=== PATIENT | male | born 1950 | race Caucasian/White ===

== ENCOUNTER 2018-06-27 14:52 | Observation (INO) | payer MEDICARE ==
--- NOTE | 2018-06-27 15:23 | ED Physician Documentation ---
History of Present Illness - Stated complaint Stated Complaint: CP/WEAKNESS - Chief complaint Chief Complaint: Cardiac - Additonal information Additional information: hx from pt years of int fleeting sharp l chest pains increased freq and severity this week but still fleeting worse with laying down not related to exertion has had cardiac wup with [place] including stress test no fever cough no travel no leg swelling also felt very weak and faint today Review of Systems Constitutional: denies: Fever, Chills Cardiac: reports: Chest pain / pressure. denies: Palpitations Respiratory: denies: Dyspnea, Cough GI: denies: Abdominal Pain, Nausea, Vomiting Neurologic: reports: Generalized weakness Psychiatric: denies: Depressed Endocrine: denies: Polydypsia PD PAST MEDICAL HISTORY - Present Medications Home Medications: Ambulatory Orders Medication Instructions Recorded Confirmed Apixaban [Eliquis] 06/27/18 06/27/18 Furosemide [Lasix] 40 mg 06/27/18 RX: Allopurinol 300 mg 06/27/18 RX: Atenolol 25 mg 06/27/18 RX: Lisinopril 20 mg 06/27/18 RX: Potassium Chloride 10 meq PO 06/27/18 - Allergies Allergies/Adverse Reactions: Allergies Allergy/AdvReac Type Severity Reaction Status Date / Time No Known Drug Allergies Allergy Verified 06/27/18 15:10 PD ED PE NORMAL - Vitals Vital signs reviewed: Yes - General General: Alert and oriented X 3 - Neck Neck: Supple, no meningeal sign - Cardiac Cardiac: RRR, No murmur - Respiratory Respiratory: Clear bilaterally - Abdomen Abdomen: Non tender - Derm Derm: Normal color - Extremities Extremities: No deformity, No edema, No calf tenderness / cord - Neuro Neuro: Alert and oriented X 3 Results - Vitals Vitals: Vital Signs - 24 hr 06/27/18 06/27/18 15:04 16:13 Temperature 37.2 C Heart Rate 60 66 Respiratory 17 14 Rate Blood Pressure 155/93 H 129/85 H O2 Saturation 98 96 Oxygen O2 Source Room air - EKG (time done) 1500 Rate: Rate (enter#) (39) Rhythm: Atrial fibrillation Ischemia: Non specific changes (flat T inf and lateral) - Labs Labs: Laboratory Tests 06/27/18 06/27/18 06/27/18 15:02 15:02 15:28 WBC 6.6 RBC 4.85 Hgb 16.1 Hct 46.6 MCV 96.1 H MCH 33.2 H MCHC 34.6 RDW 13.7 Plt Count 136 MPV 9.7 Neut # (Auto) 3.2 Lymph # (Auto) 2.0 [place] # (Auto) 1.0 Eos # (Auto) 0.2 Baso # (Auto) 0.1 Absolute Nucleated RBC 0.01 Nucleated RBC % 0.1 Sodium Potassium Chloride Carbon Dioxide Anion Gap BUN Creatinine Estimated GFR (MDRD) Glucose Calcium Magnesium 2.2 Total Bilirubin 1.4 H Direct Bilirubin 0.2 AST 30 ALT 34 Alkaline Phosphatase 39 L Troponin I Total Protein 6.9 Albumin 4.2 Globulin 2.7 06/27/18 06/27/18 15:28 15:28 WBC RBC Hgb Hct MCV MCH MCHC RDW Plt Count MPV Neut # (Auto) Lymph # (Auto) [place] # (Auto) Eos # (Auto) Baso # (Auto) Absolute Nucleated RBC Nucleated RBC % Sodium 135 Potassium 4.1 Chloride 99 L Carbon Dioxide 26 Anion Gap 10.0 BUN 14 Creatinine 0.8 Estimated GFR (MDRD) 96 Glucose 106 H Calcium 9.1 Magnesium Total Bilirubin Direct Bilirubin AST ALT Alkaline Phosphatase Troponin I < 0.04 Total Protein Albumin Globulin - Rads (name of study) CXR Radiology: See rad report (5 mm nodule RLL) PD MEDICAL DECISION MAKING - ED course ED course: chest pain sounds unlikely to be ACS but more concerned about sig bradycardia and feeling weak and faint he is on a BB d/w pt and and agree prudent to obs to hold BB and make sure HR improves (ie doesn't need a PPM) also hopefully get an echo to further eval the CP d/w hospitalist at 1635 Departure - Departure Disposition: ED Place in Observation Clinical Impression: Bradycardia Chest pain Qualifiers: Chest pain type: unspecified Qualified Code(s): R07.9 - Chest pain, unspecified Discharge Date/Time: 06/27/18 17:27
[2018-06-27 15:33] LABS: BASOPHILS # (AUTO) 0.1 10^3/uL (0.0-0.1); BASOPHILS % (AUTO) 0.9 %; EOSINOPHILS # (AUTO) 0.2 10^3/uL (0.0-0.7); EOSINOPHILS % (AUTO) 2.7 %; HGB - HEMOGLOBIN 16.1 g/dL (14.0-18.0); LYMPHOCYTES % (AUTO) 31.2 %; MEAN CORPUSCULAR HEMOGLOBIN 33.2 pg (27.0-31.0); MEAN CORPUSCULAR HGB CONC 34.6 g/dL (32.0-36.0); MEAN CORPUSCULAR VOLUME 96.1 fL (80.0-94.0); MEAN PLATELET VOLUME 9.7 fL (7.4-11.4); NEUTROPHILS # (AUTO) 3.2 10^3/uL (1.5-6.6); NEUTROPHILS % (AUTO) 49.2 %; PLT - PLATELET COUNT 136 10^3/uL (130-450); RED BLOOD COUNT 4.85 10^6/uL (4.70-6.10); RED CELL DISTRIBUTION WIDTH 13.7 % (12.0-15.0); WHITE BLOOD COUNT 6.6 x10^3/uL (4.8-10.8)
[2018-06-27 15:43] LABS: CALCIUM 9.1 mg/dL (8.5-10.3); CREATININE 0.8 mg/dL (0.6-1.2)
--- NOTE | 2018-06-27 15:52 | XRAY Report ---
Reason: chest pain Procedure Date: 06/27/2018 Accession Number: [id number] / [id number] Procedure: XR - Chest 1 View X-Ray CPT Code: 00649 FULL RESULT: EXAM: CHEST RADIOGRAPHY EXAM DATE: 06/27/2018 03:13 PM. CLINICAL HISTORY: Chest pain. COMPARISON: None available. TECHNIQUE: 1 view. FINDINGS: Lungs/Pleura: No acute infiltrate or consolidation. No pneumothorax or large pleural effusion. There is a 5 mm nodular opacity in the lateral lower right lung which might be calcified. Mediastinum: Within exam limitations, the cardiomediastinal contour is normal. There is atherosclerotic calcification in the aortic arch. Other: There are degenerative endplate changes in the spine. IMPRESSION: 1. No acute infiltrate or consolidation. 2. Possibly calcified subcentimeter nodule in the lateral lower right lung. If there are no prior exams for comparison, this could be further characterized with chest CT on a nonemergent basis. RADIA
[2018-06-27] MEDS ORDERED: SODIUM CHLORIDE FLUSH 0.9% 10 ML SYRINGE IVP PRN (16:47)
[2018-06-27] MEDS ORDERED: ACETAMINOPHEN 325 MG TABLET PO PRN (16:47)
[2018-06-27 17:19] LABS: ALBUMIN 4.2 g/dL (3.2-5.5); BILIRUBIN,DIRECT 0.2 mg/dL (0.1-0.5); BILIRUBIN,TOTAL 1.4 mg/dL (0.2-1.0); TOTAL PROTEIN 6.9 g/dL (6.7-8.2)
[2018-06-27] MEDS: SODIUM CHLORIDE FLUSH 0.9% 10 ML SYRINGE IVP SCH (17:55)
--- NOTE | 2018-06-27 20:20 | HISTORY & PHYSICAL EXAMINATION ---
DATE OF SERVICE: 06/27/2018 Physician: Sia Almendarez MD HISTORY OF PRESENT ILLNESS: This is a 67-year-old white male who just moved to [place] 2 months ago from [place] for half-way. He has a history of chronic AFib and is on Atenolol and Eliquis. He has a history of hypertension and gout. He has been complaining of brief, stabbing chest pains in the left chest without any radiation or associated symptoms, for about 5 years, which have gotten worse over the past 1 year, and especially in this last week. He gets them every day, multiple times a day. They are worse in a supine position. He has not had any testing for this because of the move, and he has no PCP locally yet. He has not seen his assurance senior manager in 5 years, even in the [place] area. He gets occasional dizziness, not associated with his chest symptoms, which have increased over the past several weeks. Today, while doing routine activities around the house, he developed severe weakness, and near syncope, needed to sit down and presented to the emergency room. In the emergency room, he was found to have atrial fibrillation with a heart rate of 30 and he is being placed in Observation for management of his bradycardia, which is probably the reason for this near syncope. He also described the chest pain pattern to the emergency room doctor, and he will be evaluated for this. PAST MEDICAL HISTORY 1. Hypertension, on Lisinopril, Lasix and potassium 2. Gout, on allopurinol. 3. Permanent atrial fibrillation, on atenolol 12.5 daily and Eliquis 5 b.i.d. ALLERGIES: None. MEDICATIONS 1. Lisinopril, unknown dose daily in the morning. 2. Lasix, unknown dose in the morning. 3. Potassium. 4. Atenolol 12.5 mg at bedtime. 5. Eliquis 5 mg b.i.d. 6. Allopurinol 100 mg at bedtime. REVIEW OF SYSTEMS: Comprehensive review of systems was performed and the pertinent positives are in the HPI, the rest are negative. FAMILY HISTORY: Noncontributory. SOCIAL HISTORY: He is a nonsmoker, quit in . He drinks social alcohol, usually about once or twice a week, and uses no illicit drugs. He lives with his new of 1-1/2 years, and he is retired from a business position. PHYSICAL EXAMINATION GENERAL: White male, in no distress. VITAL SIGNS: Blood pressure 120-140/70, heart rate is in the 60s in atrial fibrillation. Afebrile. Room air saturation 97%. HEENT: Unremarkable. NECK: Without JVD or carotid bruits. LUNGS: Clear. HEART: Heart sounds are bradycardic with a 1-2/6 systolic murmur heard at the lower left sternal border. There is no RV heave. No gallop. ABDOMEN: Soft, obese. Positive bowel sounds, nontender. No organomegaly. EXTREMITIES: Trace pedal edema. No clubbing or cyanosis. NEUROLOGIC: Intact. LABORATORIES: Normal electrolytes. Normal BUN and creatinine. Bilirubin 1.4, normal AST and ALT. Troponin undetectable. CBC unremarkable, except MCV 96. No urinalysis was done. No INR was done. DIAGNOSTIC STUDIES: EKG: atrial fibrillation with a rate of 30, otherwise unremarkable. Chest x-ray: no active pulmonary disease. IMPRESSION/DIAGNOSES 1. Near syncope. 2. Bradycardia, which is likely from the atenolol use, but possibly underlying sick sinus syndrome. 3. Chronic atrial fibrillation, on proper Eliquis dosing. 4. History of hypertension. 5. History of gout. 6. Atypical chest pain for angina; the features are a little more as seen with pericarditis since they are worsened with supine position, and could be associated with gout. PLAN: Place the patient in Observation status on telemetry. Stop his beta adamaris. Obtain orthostatic vital signs. Obtain an Echo to evaluate LV and RV contractility and the murmur. If orthostatic vital signs are abnormal, then stop his Lasix and lisinopril. Continue with the Eliquis and allopurinol. Check carotid Dopplers as well for any stenosis that could also be adding to his dizziness. DEEP VENOUS THROMBOSIS PROPHYLAXIS: Pharmacologic. CODE STATUS: FULL CODE. ATTESTATION: The patient is expected to be discharged or transferred to another facility in 96 hours: Yes. TD: 06/27/2018 19:43 MTDD
[2018-06-27] MEDS: ALLOPURINOL 100 MG TABLET PO SCH (21:36)
[2018-06-27] MEDS: APIXABAN 5 MG TABLET PO SCH (21:37)
[2018-06-28] MEDS: SODIUM CHLORIDE FLUSH 0.9% 10 ML SYRINGE IVP SCH ×2 (00:36→08:34)
[2018-06-28] MEDS ORDERED: PANTOPRAZOLE 40 MG TABLET PO SCH (07:00)
[2018-06-28 08:06] VITALS: BP 113/74
[2018-06-28] MEDS: ALLOPURINOL 100 MG TABLET PO SCH (08:34)
[2018-06-28] MEDS: APIXABAN 5 MG TABLET PO SCH (08:34)
[2018-06-28] MEDS ORDERED: LISINOPRIL 5 MG TABLET PO SCH (09:00)
[2018-06-28] MEDS ORDERED: POLYETHYLENE GLYCOL 3350 17 GM PACKET PO SCH (09:00)
--- NOTE | 2018-06-28 10:41 | Discharge Plan ---
Discharge Plan Disposition: Home, Self Care Condition: Stable Prescriptions: Colchicine [Colcrys] 0.6 mg PO DAILY #7 tablet Lisinopril [Zestril] 5 mg PO DAILY #30 tablet Diet: Low Sodium Activity Restrictions: Activity as Tolerated Shower Restrictions: No Driving Restrictions: No Instruction Topics: Pericarditis, Gout, Gout Eat Prevent, Atrial Fibrillation, Blockage Carotid Artery Additional Instructions or Follow Up instructions: You were in the hospital to evaluate stabbing chest pain and near-fainting. Here is a summary of findings and changes we recommend in your medications and management: 1) Your pulse in Afib was 30. This likely caused the weakness and near-fainting. Your Atenolol dose was stopped and the pulse improved to the 60's. This indicates that you have a type of Afib associated with "Sick Sinus Syndrome". You will need to have a Whittling Room Operator for follow-ups of this problem. There is a chance you may need a pacemaker in the future, if the pulse becomes slower. STOP taking the ATENOLOL. 2) The chest pain is likely Pericarditis. Please take the Colchicine (anti- inflammatory medication) for 5-7 days to treat it. Colchicine also helps with gout attacks, which you recently had. A prescription for Colchicine was ordered. 3) Hypertension control with Lisinopril was excessive, your BP was a bit low. A low blood pressure also added to your symptom of weakness and near-fainting. Therefore the dose of Lisinopril should be decreased to a daily tablet of 5 mg, NOT 20 mg daily. A prescription for the new Lisinopril dose was ordered. 4) The Lasix plus Potassium, which controls your leg swelling, could be decreased to Mon, Wed, Fri to lessen any dehydration. Dehydration may have added to the weakness and near-fainting as well. Also, taking less Lasix would also decrease uric acid retention and diminish gout attacks. 5) No changes were made in the Eliquis, vitamins, [place]-3, Magnesium or Allopurinol doses. Continue to take those. 6) The carotid Doppler showed a blocked carotid artery on the right. You need aggressive management of your cholesterol and you should also be ssen by a Neurologist, in consultation. 7) A small nodule was seen in the lower right lung and the Radiologist suggested that you ask your PCP to order a lung CT scan for further lung evaluation - or if this nodule is known to be unchanged from prior lung images, you might not need any further work up. 8) To help accelerate you establishing with a new PCP on [facility], our Forgeman Helper gave you Clinic/offices to call personally and ask if they are accepting new patients on [employer] insurance. No Smoking: If you smoke, Please STOP! Call for help.
[2018-06-28] MEDS ORDERED: COLCHICINE 0.6 MG TABLET PO SCH (11:00)
--- NOTE | 2018-06-28 12:41 | Ultrasound Report ---
Reason: Near syncope Procedure Date: 06/28/2018 Accession Number: [id number] / [id number] Procedure: US - Carotid Doppler Complete CPT Code: FULL RESULT: EXAM: BILATERAL CAROTID AND VERTEBRAL ARTERY DUPLEX DOPPLER ULTRASOUND: EXAM DATE: 06/28/2018 10:58 AM CLINICAL HISTORY: Near syncope. COMPARISON: None. TECHNIQUE: Grayscale imaging, color Doppler, and duplex spectral Doppler were used to evaluate the carotid and vertebral arteries bilaterally. Static images were obtained. FINDINGS: The distal right internal carotid artery is occluded. Otherwise, no significant plaque is identified in the right or left common or internal carotid arteries.Normal antegrade flow is present in bilateral vertebral arteries. VELOCITIES (cm/sec): Right CCA mid: PSV 81 cm/sec CCA dist: PSV 75 cm/sec ICA prox: PSV 75 cm/sec, EDV 26 cm/sec ICA mid: PSV 56 cm/sec, EDV 18 cm/sec ICA dist: Occluded. ECA: PSV 122 cm/sec Vert: PSV 37 cm/sec ICA/CCA: 0.92 Left CCA mid: PSV 73 cm/sec CCA dist: PSV 71 cm/sec ICA prox: PSV 63 cm/sec, EDV 20 cm/sec ICA mid: PSV 73 cm/sec, EDV 22 cm/sec ICA dist: PSV 59 cm/sec, EDV 25 cm/sec ECA: PSV 98 cm/sec Vert: PSV 44 cm/sec ICA/CCA: 1.0 ICA diameter stenosis: Right: <50% by velocity and <70% by NASCET criteria. Left: <50% by velocity and <70% by NASCET criteria. IMPRESSION: 1. The distal right internal carotid artery is occluded. Otherwise, no significant bilateral carotid artery plaquing. 2. In the patent portions of the right carotid artery there are no elevated carotid artery velocities to suggest hemodynamically significant stenosis. 3. In the left carotid artery there are no elevated carotid artery velocities to suggest hemodynamically significant stenosis. 4. Normal antegrade flow is present in bilateral vertebral arteries. General Recommendations: Stenosis =50% ICA - Follow-up ultrasound 6-12 months Stenosis <50% ICA - High Risk Patient with plaque - Follow-up ultrasound 1-2 years Normal Study but High Risk Patient - Follow-up ultrasound 3-5 years Management recommendations and diagnostic criteria are based on current IAC endorsed standards in Carotid Artery Stenosis: Grayscale and Doppler Ultrasound Diagnosis. Validated velocity measurements with angiographic measurements and velocity criteria are extrapolated from diameter data as defined by the Society of Radiologists in Ultrasound Consensus Conference Radiology 2003; 229;340-346. RADIA
--- NOTE | 2018-07-01 17:42 | DISCHARGE SUMMARY ---
Physician: Sia Almendarez MD DATE OF ADMISSION: 06/27/2018 DATE OF DISCHARGE: 06/28/2018 PRIMARY CARE PHYSICIAN: None. HISTORY OF PRESENT ILLNESS: This is a 67-year-old white male who just moved to [facility] from [place] 2 months ago. He has a history of chronic atrial fibrillation, is on Eliquis, hypertension and gout. The patient takes daily Lasix and potassium for leg edema. He says he has not seen a Refrigerating Technician in over 5 years and has not yet established with a PCP locally. The patient came to the emergency room with complaints of near syncope that occurred during usual activities around his house. He was found to have a heart rate of 30 in atrial fibrillation and placed in Observation status for management. The patient also reported a 1-year history of intermittent stabbing chest pain in the left lower chest, which is worse with supine position, which was also evaluated. HOSPITAL COURSE AND DISCHARGE DIAGNOSES: 1. Near syncope. The patient had troponin levels done x3 which were normal, thus he ruled out for an [place]. His Atenolol 25 mg dose was discontinued and allowed to wash out to let his heart rate increase, since bradycardia was felt to contribute to the near syncope. On the day of discharge, his heart rate was 60 at rest and 80-100 with activity. He also had a relatively low blood pressure on his current combination of medications. Blood pressure was 120s/70s. There were no signs of orthostasis on several checks, but he was clinically somewhat dehydrated. Therefore, the recommendations at discharge were to discontinue Atenolol, decrease the lisinopril from 20 mg daily to 5 mg daily and consider decreasing Lasix (plus Potassium) from daily to Friday, Friday, Friday. The patient had carotid Doppler testing, which was remarkable for a completely occluded right internal carotid artery and no other significant plaque and normal antegrade flow in bilateral vertebral arteries. This finding should lead to consideration for a Neurology consult. 2. Atypical chest pain. The description was not typical for angina. His troponins were normal. He underwent an Echo which showed LVEF of 50-55%. Other findings were mild mitral regurgitation, aortic regurgitation, tricuspid regurgitation and mild pulmonary hypertension with PA pressure of 42 mmHg. The description of supine and stabbing chest pain was consistent with pericarditis and he was discharged with a therapeutic trial of colchicine 0.6 mg daily for 5- 7 days. There had been a recent exacerbation of his gout and he was told that this colchicine could treat the symptoms in his feet. 3. Bradycardia. If the patient continues to have bradycardic episodes plus intermittent tachycardia off his beta adamaris, he would be considered to have sick sinus syndrome and may need a pacemkaer in the future. Because of this, he was advised to establish with a Refrigerating Technician after finding a PCP. 4. Chronic atrial fibrillation. The patient was kept on his Eliquis during this hospital stay. 5. Pulmonary hypertension. This is a new diagnosis for the patient. He was advised to have either Pulmonary or Cardiology evaluation for this. His resting chest x-ray had findings of a calcified nodule in the lateral lower right lung and further followup was advised unless this has been seen previously. 6. History of hypertension. The patient's blood pressure medications were adjusted as above. 5. History of gout. See #2 but there were no flare-ups while here. ALLERGIES: NONE. MEDICATIONS AT THE TIME OF DISCHARGE: 1. Allopurinol 300 mg daily. 2. Eliquis 5 mg b.i.d. 3. Lasix 40 mg daily or consider Friday, Friday, Friday. 4. Magnesium oxide 400 mg daily. 5. Multivitamin daily. 6. Fish oil tablet daily. 7. Potassium 10 mEq daily or consider changing with the Lasix. 8. Colchicine 0.6 mg daily for 5-7 days. No refills. 9. Lisinopril decreased 20 mg dose to 5 mg daily. CONDITION AT DISCHARGE: Stable. PHYSICAL EXAMINATION: VITAL SIGNS: Blood pressure 121/73, pulse of 67, in atrial fibrillation, room air saturation 97%. HEENT: Unremarkable. NECK: Without JVD or carotid bruits. CHEST: Clear. HEART: Sounds are regular. No audible murmur. ABDOMEN: Soft, obese. No organomegaly. EXTREMITIES: Trace pedal edema. No clubbing or cyanosis. NEUROLOGIC: Intact. FOLLOWUP: The patient is advised to establish with a new PCP within a week and was helped by our Graphite Pan Drier Tender as to getting one. CODE STATUS: FULL CODE. Time required to complete this entire discharge, patient education, chart review, medication prescriptions, dictation: 60 minutes. TD: 07/01/2018 17:10 BRAD
== END 2018-06-28 14:27 | disposition home or self-care (01) ==
LOC: ED 14:52 → MS2 16:47
PROVIDERS: ADMIT Internal Medicine; ATTEND Internal Medicine
DX: R55 Syncope and collapse (principal); R07.89 Other chest pain; R00.1 Bradycardia, unspecified; I95.2 Hypotension due to drugs; T46.4X5A Adverse effect of angiotensin-converting-enzyme inhibitors, initial encounter; E86.0 Dehydration; T50.1X5A Adverse effect of loop [high-ceiling] diuretics, initial encounter; I48.2 Chronic atrial fibrillation; I65.21 Occlusion and stenosis of right carotid artery; I27.20 Pulmonary hypertension, unspecified; I08.3 Combined rheumatic disorders of mitral, aortic and tricuspid valves; R91.1 Solitary pulmonary nodule; I10 Essential (primary) hypertension; M10.9 Gout, unspecified; R60.0 Localized edema; Z79.01 Long term (current) use of anticoagulants; Z79.899 Other long term (current) drug therapy; Z87.891 Personal history of nicotine dependence
CPT/HCPCS: 36415; 71045; 80048; 80076; 83735; 84484; 84550; 85025; 85651; 93005; 93306; 93880; 99283; 99284; A9270; G0378

== ENCOUNTER 2019-10-26 11:17 | Outpatient (CLI) | payer MEDICARE ==
--- NOTE | 2019-10-28 05:55 | Ultrasound Report ---
Reason: RT CAROTID OCCLUSION Procedure Date: 10/26/2019 Accession Number: [id number] / [id number] Procedure: US - Carotid Doppler Complete CPT Code: Final Report FULL RESULT: EXAM: BILATERAL CAROTID AND VERTEBRAL ARTERY DUPLEX DOPPLER ULTRASOUND: EXAM DATE: 10/26/2019 12:29 PM CLINICAL HISTORY: Right carotid occlusion. COMPARISON: CAROTID DOPPLER COMPLETE 06/28/2018. TECHNIQUE: Grayscale imaging, color Doppler, and duplex spectral Doppler were used to evaluate the carotid and vertebral arteries bilaterally. Static images were obtained. FINDINGS: Right carotid system: Small amount of partially calcified plaque in the carotid bulb and proximal internal carotid artery without elevated velocities or ratios, indicating less than 50% stenosis. Mid and distal internal carotid artery are completely occluded. Left carotid system: No significant plaque or stenosis in the internal carotid artery. Normal antegrade flow is present in bilateral vertebral arteries. Other: Irregular rhythm. VELOCITIES (cm/s): Right CCA mid: PSV 81 cm/s CCA dist: PSV 75 cm/s ICA prox: PSV 75 cm/s, EDV 26 cm/s ICA mid: PSV 56 cm/s, EDV 18 cm/s ICA dist: Occluded. ECA: PSV 122 cm/s Vert: PSV 37 cm/s ICA/CCA: 0.92 Left CCA mid: PSV 73 cm/s CCA dist: PSV 71 cm/s ICA prox: PSV 63 cm/s, EDV 20 cm/s ICA mid: PSV 73 cm/s, EDV 22 cm/s ICA dist: PSV 59 cm/s, EDV 25 cm/s ECA: PSV 98 cm/s Vert: PSV 44 cm/s ICA/CCA: 1.0 IMPRESSION: 1. 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 2. No evidence of stenosis in the left internal carotid artery. 3. Normal antegrade flow is present in bilateral vertebral arteries. 4. Irregular rhythm. RADIA
== END 2019-10-26 11:18 | disposition home or self-care (01) ==
LOC: DI 11:17
PROVIDERS: ATTEND Family Medicine
DX: I65.21 Occlusion and stenosis of right carotid artery (principal)
CPT/HCPCS: 93880

== ENCOUNTER 2022-06-24 07:22 | Day surgery (SDC) | payer MEDICARE ==
[2022-06-24] MEDS ORDERED: LACTATED RINGERS 1,000 ML IV ONE ×2 (07:56→09:04)
--- NOTE | 2022-06-24 07:59 | ANESTHESIA ---
Pre-Anesthesia VS, & Labs - Diagnosis positive cologuard - Procedure colonoscopy Vital Signs: Temp Pulse Resp BP Pulse Ox O2 Flow Rate 36.1 C L 60 16 173/96 H 97 06/24/22 07:50 06/24/22 07:50 06/24/22 07:50 06/24/22 07:50 06/24/22 07:50 Height: 6 ft 1 in Weight (kg): 133 kg Body Mass Index: 38.7 BMI Classification: Obese - NPO Other (prep only this am) Home Medications and Allergies Home Medications: Ambulatory Orders lisinopriL [Zestril] 5 mg PO TID 06/18/22 Apixaban [Eliquis] 5 mg PO BID 06/27/18 Furosemide [Lasix] 40 mg PO DAILY 06/27/18 allopurinoL [Allopurinol] 300 mg PO DAILY 06/27/18 Multivitamin [Theragran] 1 tab PO DAILY 06/28/18 Potassium Chloride 10 meq PO DAILY 06/28/18 lisinopriL [Zestril] 5 mg PO TID 06/18/22 Allergies/Adverse Reactions: Allergies Allergy/AdvReac Type Severity Reaction Status Date / Time No Known Drug Allergies Allergy Verified 06/27/18 15:10 Anes History & Medical History - Anesthetic History Anesthesia Complications: reports: No previous complications - Medical History Cardiovascular: reports: Hypertension, Atrial fibrillation Pulmonary: reports: None Gastrointestinal: reports: Hiatal hernia, Colon polyps Urinary: reports: None Neuro: reports: None Musculoskeletal: reports: Osteoarthritis Endocrine/Autoimmune: reports: None Blood Disorders: reports: None Skin: reports: None Smoking Status: Former smoker History of Cancer?: Yes - Surgical History General: reports: Colonoscopy, Other Eyes Ears Nose Throat (EENT): reports: Cataracts Orthopedic: reports: Hip replacement Dermatologic: reports: Skin cancer surgery Exam General: Alert, Oriented x3 Dental: WNL Mouth Opening: Greater than 4 Fingerbreadths Neck Mobility: Normal Mallampati classification: II Thyromental Distance: greater than 6 cm Respiratory: Lungs clear Cardiovascular: Other (irregular) Mental/Cognitive Status: Alert/Oriented X3 Plan Anesthesia Type: Total IV Consent for Procedure(s) Verified and Reviewed: Yes Code Status: Attempt Resuscitation ASA classification: 3-Severe systemic disease Is this case an emergency?: No
[2022-06-24] MEDS ORDERED: PROPOFOL 500 MG/50 ML 500 MG/50 ML VIAL ONE (08:09)
[2022-06-24] MEDS ORDERED: GLYCOPYRROLATE 1 MG/5 ML VIAL ONE (08:21)
[2022-06-24] MEDS ORDERED: PROPOFOL 200 MG/20 ML VIAL IVP ONE (08:55)
--- NOTE | 2022-06-24 09:34 | ANESTHESIA POST OP EVALUATION ---
Anesthesia Post Eval - Post Anesthesia Eval Vitals: Last Vital Signs Temp 36.1 C L 06/24/22 09:17 Pulse 74 06/24/22 09:17 Resp 17 06/24/22 09:17 BP 153/92 H 06/24/22 09:17 Pulse Ox 97 06/24/22 09:17 O2 Flow Rate CV Function Including HR & BP: Stable Pain Control: Satisfactory Nausea & Vomiting: Negative Mental Status: Baseline Respiratory Status: Airway Patent Hydration Status: Satisfactory Anesthesia Complications: None
[2022-06-24 09:35] VITALS: BP 121/65
== END 2022-06-24 07:23 | disposition home or self-care (01) ==
LOC: SDS 07:22
PROVIDERS: ATTEND Surgery
PROC: 0DBL8ZZ Excision of Transverse Colon, Via Natural or Artificial Opening Endoscopic (ICD-10-PCS; 2022-06-24)
PROC: 0DBK8ZZ Excision of Ascending Colon, Via Natural or Artificial Opening Endoscopic (ICD-10-PCS; principal; 2022-06-24 08:30)
DX: R19.5 Other fecal abnormalities (principal); D12.2 Benign neoplasm of ascending colon; D12.3 Benign neoplasm of transverse colon; K57.30 Diverticulosis of large intestine without perforation or abscess without bleeding; E66.9 Obesity, unspecified; Z68.38 Body mass index [BMI] 38.0-38.9, adult; I48.91 Unspecified atrial fibrillation; Z87.891 Personal history of nicotine dependence
CPT/HCPCS: 45380; 45385; J7120